=== PATIENT | female | born 1975 | race African-American/Black ===

== ENCOUNTER 2022-05-11 21:49 | Emergency (ER) | payer OTHER ==
[2022-05-11 22:08] VITALS: BMI 40.1
[2022-05-12 01:25] LABS: BASO % 0.4 % (0-2.0); EOS % 1.9 % (0-4.5); HEMATOCRIT 27.6 % (32.4-45.2); HEMOGLOBIN 8.5 GM/dL (10.7-15.3); LYMPH % 12.3 % (8-40); MCH 21.5 pg (25.7-33.7); MCHC 30.7 g/dl (32.0-36.0); MEAN CELL VOLUME 70.1 fl (80-96); MONO % 10.5 % (3.8-10.2); NEUT % 74.9 % (42.8-82.8); RBC 3.94 M/mm3 (3.60-5.2); RDW 29.2 % (11.6-15.6); WHITE BLOOD COUNT 6.9 K/mm3 (4.0-10.0)
[2022-05-12 01:27] LABS: INR 1.28 (0.83-1.09); PROTHROMBIN TIME (PATIENT) 14.7 SEC (9.7-13.0)
[2022-05-12 01:29] LABS: ACTIVATED PTT 27.5 SECONDS (25.2-36.5)
[2022-05-12 01:37] LABS: CALCIUM 9.1 mg/dL (8.5-10.1)
[2022-05-12 01:38] LABS: BLOOD UREA NITROGEN 6.3 mg/dL (7-18)
[2022-05-12 01:41] LABS: CREATININE 0.6 mg/dL (0.55-1.3)
[2022-05-12 01:42] LABS: BILIRUBIN,TOTAL 0.4 mg/dL (0.2-1); TOT PROT 6.7 g/dl (6.4-8.2)
[2022-05-12 03:34] LABS: ANISOCYTOSIS 3+; MACROCYTOSIS 0; OVALOCYTE 1+; ROULEAU 1+
[2022-05-12 03:36] LABS: PLATELET COUNT 66 10^3/uL (134-434)
[2022-05-12 03:37] LABS: MEAN PLT VOLUME 9.9 fl (7.5-11.1)
[2022-05-12 06:03] VITALS: BP 128/66; PULSE 79; TEMP 98.6
[2022-05-12 07:00] LABS: EPI CELLS 10 /uL (0-25.1); HYALINE CASTS 0 /uL (0-3.1); URINE APPEARANCE CLEAR; URINE BACTERIA 391 /uL (0-1359); URINE BILIRUBIN NEGATIVE (NEGATIVE); URINE COLOR YELLOW; URINE GLUCOSE (UA) NEGATIVE (NEGATIVE); URINE KETONE NEGATIVE (NEGATIVE); URINE LEUK ESTERASE NEGATIVE (NEGATIVE); URINE NITRITE NEGATIVE (NEGATIVE); URINE PROTEIN NEGATIVE (NEGATIVE); URINE RBC 10 /uL (0-23.9); URINE WBC 15 /uL (0-25.8)
== END 2022-05-12 06:57 | disposition home or self-care (01) ==
LOC: JER 21:49
DX: R30.0 Dysuria (principal); D69.6 Thrombocytopenia, unspecified
CPT/HCPCS: 36415; 71045-TC-FY; 80053; 81003; 85025; 85610; 85730; 86850; 86870; 86900; 86901; 86902; 87040; 87086; 93005; 93010; 99284-25; C9803-CS; U0003; U0005